=== PATIENT | male | born 1960 | race American Indian/Alaskan Native ===

== ENCOUNTER 2017-09-23 23:53 | Emergency (ER) | payer MEDICAID ==
[2017-09-24 01:52] LABS: Eosinophils % (Auto) 5.3 % (0.0-4.3); Hematocrit 46.5 % (35.5-45.6); Hemoglobin 15.9 gm/dl (11.8-15.2); Mean Corpuscular HGB Conc 34 % (32-34); Mean Corpuscular Hemoglobin 32 pg (28-32); Mean Corpuscular Volume 95 fl (84-94); Platelet Count 199 K/mm3 (140-440); Red Blood Count 4.92 M/mm3 (3.65-5.03); Red Cell Distribution Width 15.2 % (13.2-15.2); White Blood Count 6.4 K/mm3 (4.5-11.0)
[2017-09-24 02:03] LABS: Partial Thromboplastin Time 28.1 Sec. (24.2-36.6)
[2017-09-24 02:19] LABS: Anion Gap 20 mmol/L; BUN/Creatinine Ratio 13; Blood Urea Nitrogen 15 mg/dL (9-20); Calcium 9.3 mg/dL (8.4-10.2); Carbon Dioxide 21 mmol/L (22-30); Glucose 92 mg/dL (75-100); Potassium 4.5 mmol/L (3.6-5.0); Sodium 138 mmol/L (137-145)
[2017-09-24] MEDS ORDERED: LOVENOX SUB-Q ONE (02:50)
--- NOTE | 2017-09-24 02:55 | Emergency Department Report ---
ED General Adult HPI - General Chief complaint: Pain General Stated complaint: RT LEG OPEN WOUND/INFECTION Time Seen by Provider: 09/24/17 02:40 Source: patient, EMS Mode of arrival: Stretcher Limitations: No Limitations - History of Present Illness Initial comments: 57-year-old male needs medical clearance for mental health treatment at [facility] patient does have a history of chronic leg ulcer disease, right lower extremity with chronic venous stasis with chronic DVT. He has stopped his Coumadin" a while ago" he presents for medical clearance with a nonhealing right leg ulcer and he is worried about increased swelling on the right leg for possible DVT. He denies fever denies chills is nontoxic. Denies other complaints no chest pain no fever no headache no stiff neck now without complaints, no chills or fever. wound is stable in appearance per pt not red/ hot. -: days(s), week(s), month(s), unknown Location: lower extremity Radiation: non-radiation Quality: burning - Related Data Home Medications Medication Instructions Recorded Confirmed Last Taken QUEtiapine [Seroquel] 300 mg PO HS 11/10/13 11/10/13 11/09/13 Warfarin [Coumadin] 15 mg PO QDAY 11/10/13 11/10/13 11/10/13 risperiDONE [Risperdal] 2 mg PO HS 11/10/13 11/10/13 11/09/13 traMADol [Ultram] 50 mg PO Q6HR PRN 11/10/13 11/10/13 11/10/13 Previous Rx's Medication Instructions Recorded Last Taken Type Oxycodone HCl/Acetaminophen 1 each PO Q6HR PRN #20 tablet 11/10/13 Unknown Rx [Percocet 10-325 mg] HYDROcodone/APAP 5-325 [[place] 1 - 2 each PO Q6HR PRN #14 tablet 11/02/15 Unknown Rx 5/325] Allergies Allergy/AdvReac Type Severity Reaction Status Date / Time ibuprofen [From Motrin] Allergy Hives Verified 11/10/13 17:25 raisens Allergy Hives Uncoded 11/10/13 17:25 ED Review of Systems ROS: Stated complaint: RT LEG OPEN WOUND/INFECTION Other details as noted in HPI Comment: All other systems reviewed and negative Constitutional: denies: chills, diaphoresis, fever, malaise Respiratory: denies: cough, orthopnea, shortness of breath, SOB with exertion, SOB at rest, stridor, wheezing Cardiovascular: denies: edema, syncope Gastrointestinal: denies: abdominal pain Skin: denies: change in color Neurological: denies: headache, weakness, numbness, paresthesias ED Past Medical Hx - Past Medical History Previous Medical History?: Yes Hx Diabetes: Yes (taken off insulin 1 yr) Hx Deep Vein Thrombosis: Yes (on coumadin) Additional medical history: 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 - Surgical History Past Surgical History?: Yes Additional Surgical History: pacemaker, greenfilter insertion - Social History Smoking Status: Current Every Day Smoker Substance Use Type: Alcohol, Cocaine, Marijuana, Prescribed, Other - Medications Home Medications: Home Medications Medication Instructions Recorded Confirmed Last Taken Type Oxycodone HCl/Acetaminophen 1 each PO Q6HR PRN #20 tablet 11/10/13 Unknown Rx [Percocet 10-325 mg] QUEtiapine [Seroquel] 300 mg PO HS 11/10/13 11/10/13 11/09/13 History Warfarin [Coumadin] 15 mg PO QDAY 11/10/13 11/10/13 11/10/13 History risperiDONE [Risperdal] 2 mg PO HS 11/10/13 11/10/13 11/09/13 History traMADol [Ultram] 50 mg PO Q6HR PRN 11/10/13 11/10/13 11/10/13 History HYDROcodone/APAP 5-325 [[place] 1 - 2 each PO Q6HR PRN #14 tablet 11/02/15 Unknown Rx 5/325] ED Physical Exam - General Limitations: No Limitations General appearance: alert, in no apparent distress - Head Head exam: Present: atraumatic, normal inspection - Eye Eye exam: Present: normal appearance, PERRL, EOMI - ENT ENT exam: Present: normal exam - Neck Neck exam: Present: normal inspection, full ROM. Absent: tenderness, meningismus - Respiratory Respiratory exam: Present: normal lung sounds bilaterally. Absent: respiratory distress, wheezes, rales, rhonchi, stridor, chest wall tenderness, accessory muscle use - Cardiovascular Cardiovascular Exam: Present: regular rate, normal heart sounds. Absent: systolic murmur, diastolic murmur - GI/Abdominal GI/Abdominal exam: Present: soft. Absent: tenderness - Extremities Exam Extremities exam: Present: other (nonhealing ulcer right lower leg distally neurovascular intact chronic stasis change with chronic edema right lower extremity no cellulitis or abscess no soft tissue gas appreciated distally neurovascular intact) - Back Exam Back exam: Absent: normal inspection, CVA tenderness (L) - Neurological Exam Neurological exam: Present: alert, altered, oriented X3, CN II-XII intact. Absent: motor sensory deficit - Psychiatric Psychiatric exam: Present: depressed, anxious. Absent: homicidal ideation, suicidal ideation - Skin Skin exam: Absent: erythema, petechiae, pallor ED Course Vital Signs 09/24/17 09/24/17 01:02 01:30 Pulse Rate 75 Respiratory 18 18 Rate Blood Pressure 131/84 O2 Sat by Pulse 97 97 Oximetry ED Medical Decision Making - Lab Data Result diagrams: 09/24/17 01:36 09/24/17 01:36 - Radiology Data Radiology results: report reviewed - Medical Decision Making Patient will be medically cleared. Lovenox given 1/kg. Ulceration was dressed. Patient does have outpatient follow-up care wound Center at [facility] although he's been noncompliant., labs return unremarkable as is xray, pt given lovenox to return in am for dvt u/s, stable now for clearance to [facility] w/ neg psych clearance labs Critical care attestation.: If time is entered above; I have spent that time in minutes in the direct care of this critically ill patient, excluding procedure time. ED Disposition Clinical Impression: Chronic ulcer of leg, Pedal edema Disposition: [id number]/TX-[id number] PSY HOSP/PSY UNIT Is pt being admited?: No Condition: Stable Instructions: Chronic Wound Care (ED), Leg Edema (ED) Additional Instructions: You will need to return in the morning for DVT ON exam. You were given a shot of blood thinner he will need to see her regular doctor as needed or return immediately to the ED for neurologic symptoms such as worse swelling or pain fever chest pain shortness of breath or other problems Referrals: PRIMARY CARE, [Primary Care Provider] - 3-5 Days Time of Disposition: 03:56 (to [facility])
--- NOTE | 2017-09-24 03:18 | XRay Report ---
FINAL REPORT PROCEDURE: XR TIBIA FIBULA 2V RT TECHNIQUE: RIGHT tibia and fibula radiographs, AP and lateral views. CPT 26831 HISTORY: wound COMPARISON: No prior studies are available for comparison. FINDINGS: Fracture (s) and/or Dislocation(s): None . Joint space(s): Normal . Soft tissues: There is generalized soft tissue swelling. There is a focal ulceration of the pretibial soft tissues.. Bone mineralization: Normal . Foreign bodies: None . IMPRESSION: There is generalized soft tissue swelling. There is a focal ulceration of the pretibial soft tissues.. There is no acute bony abnormality..
[2017-09-24 03:38] LABS: Urine Drugs of Abuse Note Disclamer
[2017-09-24 03:49] LABS: Bilirubin,Urine NEG (Negative); Blood,Urine NEG (Negative); Ketones,Urine NEG (Negative); Leukocyte Esterase,Urine NEG (Negative); Nitrite,Urine NEG (Negative); Protein,Urine <15 mg/dL mg/dL (Negative); Urobilinogen,Urine < 2.0 mg/dL (<2.0)
[2017-09-24 07:30] VITALS: BP 137/84
== END 2017-09-24 06:59 ==
LOC: ED 23:53
DX: L97.818 Non-pressure chronic ulcer of other part of right lower leg with other specified severity (principal); R60.0 Localized edema; E11.9 Type 2 diabetes mellitus without complications; I82.401 Acute embolism and thrombosis of unspecified deep veins of right lower extremity; Z95.818 Presence of other cardiac implants and grafts; F14.10 Cocaine abuse, uncomplicated; F12.10 Cannabis abuse, uncomplicated; Z88.8 Allergy status to other drugs, medicaments and biological substances
CPT/HCPCS: 36415; 73590; 80048; 80307; 81001; 85025; 85610; 85730; 96372; 99284; G0480; J1650; 80320

== ENCOUNTER 2017-09-24 12:54 | Outpatient (CLI) | payer MEDICAID ==
--- NOTE | 2017-09-25 13:02 | Vascular Lab Report ---
Left Lower Extremity Venous Duplex Study: Reason for Exam: Pain and swelling of the left lower extremity. Comments on the Right: A limited duplex study was done of the proximal veins of the right lower extremity. All veins visualized are freely compressible without evidence of internal echogenicity. Flow is spontaneous and phasic throughout. No evidence of acute or chronic thrombus is seen in any of the vessels visualized. Comments on the Left: Nonocclusive, chronic thrombosis seen throughout the superficial femoral vein. The remaining veins visualized are freely compressible without evidence of internal echogenicity. Spontaneous and phasic flow is present proximally. Impression: 1. Deep venous thrombosis in the left superficial femoral vein. 2. No evidence of acute deep venous thrombosis in the left lower extremity.
== END 2017-09-24 12:55 | disposition home or self-care (01) ==
LOC: VAS 12:54
PROVIDERS: ATTEND Emergency Medicine
DX: I82.412 Acute embolism and thrombosis of left femoral vein (principal); F17.200 Nicotine dependence, unspecified, uncomplicated; Z79.01 Long term (current) use of anticoagulants

== ENCOUNTER 2017-09-25 12:52 | Outpatient (CLI) | payer MEDICAID ==
--- NOTE | 2017-09-27 14:31 | Vascular Lab Report ---
Right Lower Extremity Venous Duplex Study: Reason for Exam: Pain and swelling of the right lower extremity. Comments on the Right: All veins visualized are freely compressible without evidence of internal echogenicity. Flow is spontaneous and phasic throughout. No evidence of acute or chronic thrombus is seen in any of the vessels visualized. Comments on the Left: Nonocclusive chronic deep venous thrombus in the right lower femoral vein with extension into the popliteal vein. The remaining veins visualized are freely compressible without evidence of internal echogenicity. Spontaneous and phasic flow is present proximally. Impression: Chronic right lower extremity nonocclusive deep venous thrombus of the femoral vein extending into the popliteal vein..
== END 2017-09-25 12:53 | disposition home or self-care (01) ==
LOC: VAS 12:52
PROVIDERS: ATTEND Psychiatry & Neurology Psychiatry
DX: I82.512 Chronic embolism and thrombosis of left femoral vein (principal); I82.531 Chronic embolism and thrombosis of right popliteal vein; F17.200 Nicotine dependence, unspecified, uncomplicated

== ENCOUNTER 2017-11-21 09:19 | Outpatient (CLI) | payer MEDICAID ==
[2017-11-21] MEDS ORDERED: XYLOCAINE TOPICAL 4% TP ONE (09:54)
== END 2017-11-21 09:20 | disposition home or self-care (01) ==
LOC: WOUND 09:19
PROVIDERS: ATTEND Nurse Practitioner
DX: I87.331 Chronic venous hypertension (idiopathic) with ulcer and inflammation of right lower extremity (principal); L97.811 Non-pressure chronic ulcer of other part of right lower leg limited to breakdown of skin; F32.9 Major depressive disorder, single episode, unspecified; F17.210 Nicotine dependence, cigarettes, uncomplicated; Z95.0 Presence of cardiac pacemaker; Z86.718 Personal history of other venous thrombosis and embolism; Z72.89 Other problems related to lifestyle
CPT/HCPCS: 11042; G0463; 29580

== ENCOUNTER 2017-11-28 10:22 | Outpatient (CLI) | payer MEDICAID ==
[2017-11-28] MEDS ORDERED: XYLOCAINE TOPICAL 2% 30ML TP ONE (11:04)
[2017-11-28] MEDS ORDERED: XYLOCAINE TOPICAL 2% 5ML ONE (11:06)
== END 2017-11-28 10:23 | disposition home or self-care (01) ==
LOC: WOUND 10:22
PROVIDERS: ATTEND Nurse Practitioner
DX: I87.331 Chronic venous hypertension (idiopathic) with ulcer and inflammation of right lower extremity (principal); L97.811 Non-pressure chronic ulcer of other part of right lower leg limited to breakdown of skin; F32.9 Major depressive disorder, single episode, unspecified; L84 Corns and callosities; F17.210 Nicotine dependence, cigarettes, uncomplicated; Z86.718 Personal history of other venous thrombosis and embolism; Z95.0 Presence of cardiac pacemaker; Z72.89 Other problems related to lifestyle
CPT/HCPCS: 87075; 87116

== ENCOUNTER 2018-04-16 10:02 | Outpatient (CLI) | payer MEDICAID ==
[2018-04-16] MEDS ORDERED: XYLOCAINE TOPICAL 4% TP ONE ×2 (10:26→11:08)
== END 2018-04-16 10:03 | disposition home or self-care (01) ==
LOC: WOUND 10:02
PROVIDERS: ATTEND Surgery
DX: L97.212 Non-pressure chronic ulcer of right calf with fat layer exposed (principal); I89.0 Lymphedema, not elsewhere classified; F32.9 Major depressive disorder, single episode, unspecified; F17.210 Nicotine dependence, cigarettes, uncomplicated; Z86.718 Personal history of other venous thrombosis and embolism; Z95.0 Presence of cardiac pacemaker
CPT/HCPCS: 11042; 11045; G0463

== ENCOUNTER 2018-04-23 10:56 | Outpatient (CLI) | payer MEDICAID ==
[2018-04-23] MEDS ORDERED: XYLOCAINE TOPICAL 4% TP ONE (12:00)
== END 2018-04-23 10:57 | disposition home or self-care (01) ==
LOC: WOUND 10:56
PROVIDERS: ATTEND Surgery
DX: L97.212 Non-pressure chronic ulcer of right calf with fat layer exposed (principal); I89.0 Lymphedema, not elsewhere classified; I87.2 Venous insufficiency (chronic) (peripheral); F32.9 Major depressive disorder, single episode, unspecified; F17.210 Nicotine dependence, cigarettes, uncomplicated; Z86.718 Personal history of other venous thrombosis and embolism; Z95.0 Presence of cardiac pacemaker

== ENCOUNTER 2018-04-30 09:12 | Outpatient (CLI) | payer MEDICAID ==
[2018-04-30] MEDS ORDERED: XYLOCAINE TOPICAL 4% TP ONE ×2 (09:22→09:52)
== END 2018-04-30 09:13 | disposition home or self-care (01) ==
LOC: WOUND 09:12
PROVIDERS: ATTEND Surgery
DX: L97.212 Non-pressure chronic ulcer of right calf with fat layer exposed (principal); I89.0 Lymphedema, not elsewhere classified; I87.2 Venous insufficiency (chronic) (peripheral); F32.9 Major depressive disorder, single episode, unspecified; F17.210 Nicotine dependence, cigarettes, uncomplicated; Z86.718 Personal history of other venous thrombosis and embolism; Z95.0 Presence of cardiac pacemaker
CPT/HCPCS: 29580

== ENCOUNTER 2018-05-15 11:05 | Outpatient (CLI) | payer MEDICAID ==
[2018-05-15] MEDS ORDERED: XYLOCAINE TOPICAL 4% TP ONE ×2 (11:18→12:20)
== END 2018-05-15 11:06 | disposition home or self-care (01) ==
LOC: WOUND 11:05
PROVIDERS: ATTEND Surgery
DX: L97.212 Non-pressure chronic ulcer of right calf with fat layer exposed (principal); I89.0 Lymphedema, not elsewhere classified; I87.2 Venous insufficiency (chronic) (peripheral); F32.9 Major depressive disorder, single episode, unspecified; F17.210 Nicotine dependence, cigarettes, uncomplicated; Z86.718 Personal history of other venous thrombosis and embolism; Z95.0 Presence of cardiac pacemaker
CPT/HCPCS: 29580

== ENCOUNTER → 2018-05-21 | Outpatient (CLI) | payer MEDICAID ==
[~2018-05-21] MED LIST: XYLOCAINE TOPICAL 4% TP ONE
== END | disposition home or self-care (01) ==
LOC: WOUND 09:04
PROVIDERS: ATTEND Surgery
DX: L97.212 Non-pressure chronic ulcer of right calf with fat layer exposed (principal); I89.0 Lymphedema, not elsewhere classified; I87.2 Venous insufficiency (chronic) (peripheral); F32.9 Major depressive disorder, single episode, unspecified; F17.210 Nicotine dependence, cigarettes, uncomplicated; Z86.718 Personal history of other venous thrombosis and embolism; Z95.0 Presence of cardiac pacemaker
CPT/HCPCS: 29580

== ENCOUNTER 2020-05-09 18:38 | Emergency (ER) | payer MEDICAID ==
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
[2020-05-09 19:43] LABS: Basophils # (Auto) 0.1 K/mm3 (0.0-0.1); Basophils % (Auto) 1.3 % (0.0-1.8); Eosinophils # (Auto) 0.3 K/mm3 (0.0-0.4); Eosinophils % (Auto) 4.7 % (0.0-4.3); Hematocrit 36.2 % (35.5-45.6); Hemoglobin 12.1 gm/dl (11.8-15.2); Lymphocytes # (Auto) 1.5 K/mm3 (1.2-5.4); Lymphocytes % (Auto) 23.8 % (13.4-35.0); Mean Corpuscular HGB Conc 33 % (32-34); Mean Corpuscular Volume 94 fl (84-94); Monocytes # (Auto) 0.7 K/mm3 (0.0-0.8); Monocytes % (Auto) 11.4 % (0.0-7.3); Platelet Count 241 K/mm3 (140-440); Red Blood Count 3.84 M/mm3 (3.65-5.03); Red Cell Distribution Width 15.2 % (13.2-15.2)
[2020-05-09 19:54] LABS: INR 1.03 (0.87-1.13); Partial Thromboplastin Time 23.5 Sec. (24.2-36.6)
--- NOTE | 2020-05-09 19:56 | XRay Report ---
HISTORY:BLE wounds COMPARISON: None. TECHNIQUE: AP lateral and obliques views were obtained FINDINGS: Bones: No fracture or dislocation. Joint spaces: Maintained. Soft tissues: No significant abnormality. Additional findings: Old traumatic changes with reduction internal fixation calcaneus IMPRESSION: 1. No significant abnormality. Signer Name: Jag Hutson MD Signed: 05/09/2020 7:52 PM Workstation Name: [id number]
--- NOTE | 2020-05-09 19:57 | XRay Report ---
CHEST 2 VIEWS INDICATION: Chest Pain. COMPARISON: None FINDINGS: Support devices: Pacing device located left hemithorax electrode tips right ventricle and right atriu m Heart: Within normal limits. Lungs: Bronchovascular markings are prominent.. Pleura: No significant pleural effusion. No pneumothorax. Additional findings: None. IMPRESSION: 1. Prominent bronchovascular markings, recommend clinical correlation Signer Name: Jag Hutson MD Signed: 05/09/2020 7:53 PM Workstation Name: [id number]
[2020-05-09 20:09] LABS: Alanine Aminotransferase 20 units/L (7-56); Albumin 3.7 g/dL (3.9-5); BUN/Creatinine Ratio 16; Blood Urea Nitrogen 18 mg/dL (9-20); Calcium 8.8 mg/dL (8.4-10.2); Hemolysis Index 7
--- NOTE | 2020-05-10 07:51 | Emergency Department Report ---
ED General Adult HPI - General Chief complaint: Chest Pain Stated complaint: CP/SWELLING IN LEGS/ Time Seen by Provider: 05/09/20 19:06 Source: patient Mode of arrival: Ambulatory Limitations: No Limitations - History of Present Illness Initial comments: This is a 59-year-old man with an apparent history of schizophrenia and medical noncompliance. He states he has not seen a doctor for quite some time. He cannot be more specific than that. He is noncompliant with his Coumadin being prescribed after DVT/PE. He is not complaining of chest pain to me at all. He does not complain of shortness of breath. He complains of both his legs being swollen. He has old dressings on his wounds. I suspect this is from a another ER visit sometime ago. He is not a good source of information however. He does not complain of acute dyspnea or cough. Patient states that he is not diabetic. However the populated note states he was "taken off insulin 1 year ago". -: month(s), year(s) Severity scale (0 -10): 5 Quality: aching Consistency: intermittent Improves with: other (Previously been to the wound clinic but now noncompliant) Associated Symptoms: denies other symptoms (Really not offering any active complaint other than his legs being swollen) - Related Data Home Medications Medication Instructions Recorded Confirmed Last Taken QUEtiapine [Seroquel] 300 mg PO HS 11/10/13 05/10/20 11/09/13 Warfarin [Coumadin] 15 mg PO QDAY 11/10/13 05/10/20 11/10/13 risperiDONE [Risperdal] 2 mg PO HS 11/10/13 05/10/20 11/09/13 traMADoL [Ultram] 50 mg PO Q6HR PRN 11/10/13 05/10/20 11/10/13 Previous Rx's Medication Instructions Recorded Last Taken Type Oxycodone HCl/Acetaminophen 1 each PO Q6HR PRN #20 tablet 11/10/13 Unknown Rx [Percocet 10-325 mg] HYDROcodone/APAP 5-325 [[place] 1 - 2 each PO Q6HR PRN #14 tablet 11/02/15 Unknown Rx 5/325] metFORMIN [Glucophage] 500 mg PO BID #60 tablet 05/10/20 Unknown Rx Allergies Allergy/AdvReac Type Severity Reaction Status Date / Time ibuprofen [From Motrin] Allergy Hives Verified 11/10/13 17:25 RAISIN Allergy Swelling Uncoded 04/22/18 08:43 RAISINS AdvReac Hives Uncoded 09/24/17 12:58 ED Review of Systems ROS: Stated complaint: CP/SWELLING IN LEGS/ Other details as noted in HPI Constitutional: denies: chills, fever Eyes: denies: eye pain, vision change ENT: denies: ear pain, throat pain Respiratory: denies: cough, shortness of breath Cardiovascular: denies: chest pain, palpitations Endocrine: no symptoms reported Gastrointestinal: denies: abdominal pain, nausea, diarrhea Genitourinary: denies: urgency, dysuria Musculoskeletal: as per HPI, other. denies: back pain, joint swelling, arthralgia Skin: denies: rash, lesions Neurological: denies: headache, weakness Psychiatric: denies: anxiety, depression Hematological/Lymphatic: denies: easy bleeding, easy bruising ED Past Medical Hx - Past Medical History Previous Medical History?: Yes Hx Diabetes: Yes (taken off insulin 1 yr) Hx Deep Vein Thrombosis: Yes (on coumadin) Additional medical history: Pacemaker - Surgical History Past Surgical History?: Yes Additional Surgical History: Cardiac pacemaker. [place] filter - Social History Smoking Status: Current Every Day Smoker Substance Use Type: Marijuana - Medications Home Medications: Home Medications Medication Instructions Recorded Confirmed Last Taken Type Oxycodone HCl/Acetaminophen 1 each PO Q6HR PRN #20 tablet 11/10/13 05/10/20 Unknown Rx [Percocet 10-325 mg] QUEtiapine [Seroquel] 300 mg PO HS 11/10/13 05/10/20 11/09/13 History Warfarin [Coumadin] 15 mg PO QDAY 11/10/13 05/10/20 11/10/13 History risperiDONE [Risperdal] 2 mg PO HS 11/10/13 05/10/20 11/09/13 History traMADoL [Ultram] 50 mg PO Q6HR PRN 11/10/13 05/10/20 11/10/13 History HYDROcodone/APAP 5-325 [[place] 1 - 2 each PO Q6HR PRN #14 tablet 11/02/15 05/10/20 Unknown Rx 5/325] metFORMIN [Glucophage] 500 mg PO BID #60 tablet 05/10/20 Unknown Rx ED Physical Exam - General Limitations: Physical Limitation General appearance: alert, in no apparent distress, obese - Head Head exam: Present: atraumatic, normocephalic - Eye Eye exam: Present: normal appearance. Absent: scleral icterus - ENT ENT exam: Present: mucous membranes moist - Neck Neck exam: Present: normal inspection - Respiratory Respiratory exam: Present: normal lung sounds bilaterally. Absent: respiratory distress - Cardiovascular Cardiovascular Exam: Present: regular rate, normal rhythm. Absent: systolic murmur, diastolic murmur, rubs, gallop - GI/Abdominal GI/Abdominal exam: Present: soft, normal bowel sounds. Absent: distended, tenderness, guarding, rebound - Rectal Rectal exam: Present: deferred - Extremities Exam Extremities exam: Present: other (Bilateral pitting leg edema and leg ulcers below the knee). 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 He does have ulcers with minimal bleeding on removal of dressings. There is induration. However there are no overt signs of infection.) - Back Exam Back exam: Present: normal inspection - Neurological Exam Neurological exam: Present: alert, oriented X3, CN II-XII intact. Absent: motor sensory deficit - Psychiatric Psychiatric exam: Present: normal affect, normal mood - Skin Skin exam: Present: warm, dry, normal color. Absent: rash ED Course Vital Signs 05/09/20 05/10/20 05/10/20 19:11 03:11 04:20 Temperature 98 F 97.8 F 98.2 F Pulse Rate 84 70 69 Respiratory 24 69 H 18 Rate Blood Pressure 149/88 156/88 Blood Pressure 136/82 [Left] O2 Sat by Pulse 97 99 Oximetry 05/10/20 05/10/20 04:23 05:46 Temperature Pulse Rate 67 Respiratory 18 18 Rate Blood Pressure Blood Pressure 117/68 [Left] O2 Sat by Pulse 99 Oximetry - Reevaluation(s) Reevaluation #1: Patient remains in no distress. He has no respiratory symptoms. He had no complaint of chest pain. He has chronic DVT with an IVC filter. He is previously noncompliant with everything. I do not see an indication for acute anticoagulation at this time. He is referred to the [place] [facility]. He will be given metformin. He continues to deny any history of diabetes. There is no current indication for hospitalization. 05/10/20 11:25 ED Medical Decision Making - Lab Data Result diagrams: 05/09/20 19:22 05/09/20 19:22 Laboratory Results - last 24 hr 05/09/20 05/09/20 05/09/20 19:22 19:22 19:22 WBC 6.3 RBC 3.84 Hgb 12.1 Hct 36.2 MCV 94 MCH 31 MCHC 33 RDW 15.2 Plt Count 241 Lymph % (Auto) 23.8 [place] % (Auto) 11.4 H Eos % (Auto) 4.7 H Baso % (Auto) 1.3 Lymph # 1.5 [place] # 0.7 Eos # 0.3 Baso # 0.1 Seg Neutrophils % 58.8 Seg Neutrophils # 3.7 PT 13.6 INR 1.03 APTT 23.5 L Sodium 140 Potassium 4.1 Chloride 106.4 Carbon Dioxide 20 L Anion Gap 18 BUN 18 Creatinine 1.1 Estimated GFR > 60 BUN/Creatinine Ratio 16 Glucose 227 H Lactic Acid Calcium 8.8 Total Bilirubin 0.30 AST 17 ALT 20 Alkaline Phosphatase 86 Troponin T < 0.010 NT-Pro-B Natriuret Pep 101.3 Total Protein 8.5 H Albumin 3.7 L Albumin/Globulin Ratio 0.8 05/09/20 05/09/20 05/09/20 19:22 22:12 22:12 WBC RBC Hgb Hct MCV MCH MCHC RDW Plt Count Lymph % (Auto) [place] % (Auto) Eos % (Auto) Baso % (Auto) Lymph # [place] # Eos # Baso # Seg Neutrophils % Seg Neutrophils # PT INR APTT Sodium Potassium Chloride Carbon Dioxide Anion Gap BUN Creatinine Estimated GFR BUN/Creatinine Ratio Glucose Lactic Acid 2.00 1.70 Calcium Total Bilirubin AST ALT Alkaline Phosphatase Troponin T < 0.010 NT-Pro-B Natriuret Pep Total Protein Albumin Albumin/Globulin Ratio - EKG Data -: EKG Interpreted by Pr EKG shows normal: sinus rhythm, axis, intervals, QRS complexes, ST-T waves Rate: normal - EKG Data Interpretation: no acute changes - Radiology Data Radiology results: report reviewed, image reviewed IMPRESSION: 1. Prominent bronchovascular markings, recommend clinical correlation IMPRESSION: 1. Extensive bilateral chronic deep venous thrombosis, as above. Findings are similar to the remote prior exam. Critical care attestation.: If time is entered above; I have spent that time in minutes in the direct care of this critically ill patient, excluding procedure time. ED Disposition Clinical Impression: Hyperglycemia due to type 2 diabetes mellitus Qualifiers: Diabetes mellitus watermaster insulin use: without watermaster use Qualified Cod e(s): E11.65 - Type 2 diabetes mellitus with hyperglycemia Leg ulcer Qualifiers: Laterality: unspecified laterality Non-pressure ulcer stage: unspecified non- pressure ulcer stage Qualified Code(s): L97.909 - Non-pressure chronic ulcer of unspecified part of unspecified lower leg with unspecified severity Chronic deep vein thrombosis (DVT) Qualifiers: DVT location: lower extremity Affected thrombotic vein of extremity: unspecified lower extremity distal vein Laterality: bilateral Qualified Code(s): I82.5Z3 - Chronic embolism and thrombosis of unspecified deep veins of distal lower extremity, bilateral Disposition: TO HOME OR SELFCARE Is pt being admited?: No Does the pt Need Aspirin: No Condition: Stable Instructions: Diabetes Mellitus Type 2 in Adults (ED) Additional Instructions: Further care at the [facility] is strongly advised. Elevate your legs. Dressing changes at least every other day. Wound care clinic can be arranged through your primary care provider. Rx Metformin. Prescriptions: metFORMIN [Glucophage] 500 mg PO BID #60 tablet Referrals: [facility] [Provider Group] - 3-5 Days MAHESH NGO MD [Staff Physician] - 3-5 Days PRIMARY MD DAVID [Primary Care Provider] - 3-5 Days [facility] [Outside] - 3-5 Days Time of Disposition: 11:28
[2020-05-10] MEDS ORDERED: traMADol 50 MG TAB PO ONE (08:18)
--- NOTE | 2020-05-10 11:07 | Vascular Lab Report ---
DUPLEX DOPPLER LOWER EXTREMITY VEINS, BILATERAL INDICATION / CLINICAL INFORMATION: B/L swelling, non compliance, h/o DVT. TECHNIQUE: Duplex doppler imaging was performed through the veins of both lower extremities using venous tatum kenzie and other maneuvers. COMPARISON: September 2017 FINDINGS: RIGHT COMMON FEMORAL VEIN: Chronic thrombus. No acute thrombus. RIGHT FEMORAL VEIN: Chronic thrombus. No acute thrombus. RIGHT POPLITEAL VEIN: Chronic thrombus. No acute thrombus. RIGHT CALF VEINS: Not well visualized. LEFT COMMON FEMORAL VEIN: Chronic thrombus. No acute thrombus. LEFT FEMORAL VEIN: Chronic thrombus. No acute thrombus. LEFT POPLITEAL VEIN: Chronic thrombus. No acute thrombus. LEFT CALF VEINS: Negative. ADDITIONAL FINDINGS: None. IMPRESSION: 1. Extensive bilateral chronic deep venous thrombosis, as above. Findings are similar to the remote p rior exam. Signer Name: Siddharth Diallo MD Signed: 05/10/2020 11:02 AM Workstation Name: [id number]
[2020-05-10 12:29] VITALS: BP 135/85
== END 2020-05-10 12:29 | disposition home or self-care (01) ==
LOC: ED 18:38
DX: E11.65 Type 2 diabetes mellitus with hyperglycemia (principal); I82.593 Chronic embolism and thrombosis of other specified deep vein of lower extremity, bilateral; L97.909 Non-pressure chronic ulcer of unspecified part of unspecified lower leg with unspecified severity; F17.200 Nicotine dependence, unspecified, uncomplicated; F12.10 Cannabis abuse, uncomplicated; Z98.890 Other specified postprocedural states; Z79.899 Other long term (current) drug therapy; Z88.8 Allergy status to other drugs, medicaments and biological substances
CPT/HCPCS: 36415; 71046; 80053; 82140; 83880; 84484; 85025; 85610; 85730; 93005; 93970

== ENCOUNTER 2021-04-19 09:20 | Outpatient (CLI) | payer MEDICAID ==
--- NOTE | 2021-04-19 12:07 | Cat Scan Report ---
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 All CT scans at this location are performed using CT dose reduction for ALARA by means of autom ated exposure control. FINDINGS: CT ABDOMEN: Lung Bases: No significant abnormality. Liver: No significant abnormality. Biliary: No significant abnormality. Spleen: No significant abnormality. Unenlarged. Pancreas: No significant abnormality. Adrenals: No significant abnormality. 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 There is c ompensatory hypertrophy of the right kidney. Lymphatics: No lymphadenopathy. Vasculature: The IVC is not visualized below the level of the renal veins. The renal veins do reconst itute the IVC and the more superior IVC extending into the right atrium appears normal. There are ext ensive venous collaterals in the abdominal wall and retroperitoneum. The bilateral iliac veins are al so diminutive in size and likely ultimately chronically occluded. Bowel/Peritoneum: No significant abnormality. No free air. No free fluid. Normal appendix. CT PELVIC: : No significant abnormality. Lymphatics: No lymphadenopathy. Osseous Structures: No aggressive appearing osseous lesions. Additional Findings: None IMPRESSION: 1. 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 Signer Name: Juan Dobbs MD Signed: 04/19/2021 12:02 PM Workstation Name: [id number]
== END 2021-04-19 09:21 | disposition home or self-care (01) ==
LOC: CT 09:20
PROVIDERS: ATTEND Radiology Diagnostic Radiology
DX: I82.423 Acute embolism and thrombosis of iliac vein, bilateral (principal); I82.221 Chronic embolism and thrombosis of inferior vena cava; I87.8 Other specified disorders of veins
CPT/HCPCS: 36415; 74177; 82565; 84520; Q9967